=== PATIENT | male | born 1935 | race Caucasian/White ===

== ENCOUNTER 2024-05-08 16:34 | Emergency (ER) | payer OTHER ==
[~2024-05-08] VITALS: Ht 167.6 cm; Wt 41.0 kg
[2024-05-08 16:41] VITALS: O2SAT 96
[2024-05-08] MEDS ORDERED: PIPERACILLIN/TAZO 3.375G/50ML 50 ML IV ONE (17:00)
[2024-05-08 20:08] LABS: BASOPHILS % 0.2 % (0.0-2.0); HEMATOCRIT. 45.3 % (42.0-52.0); HEMOGLOBIN. 15.1 g/dL (14.0-18.0); LYMPHOCYTES % 8.4 % (20.0-50.0); MEAN CORPUSCULAR HEMOGLOBIN 30.7 pg (28.0-32.0); MEAN CORPUSCULAR HGB CONC 33.3 g/dL (31.0-37.0); MEAN CORPUSCULAR VOLUME 92.2 fL (80.0-94.0); MEAN PLATELET VOLUME 7.7 fl (7.4-10.4); MONOCYTES % 6.9 % (2.0-8.0); NEUTROPHILS % 84.5 % (40.0-76.0); PLATELET 201 x1000/uL (130-400); RED BLOOD CELL COUNT 4.91 mill/uL (4.7-6.1); RED CELL DISTRIBUTION WIDTH 14.6 % (11.6-14.6); WHITE BLOOD COUNT 10.4 x1000/uL (4.5-11.0)
[2024-05-08 20:12] LABS: CHLORIDE 106 mEq/L (98-107); POTASSIUM 5.1 mEq/L (3.5-5.1); SODIUM 141 mEq/L (136-145)
[2024-05-08 20:13] LABS: CARBON DIOXIDE 31 mEq/L (21-32)
[2024-05-08 20:14] LABS: CALCIUM 8.9 mg/dL (8.7-10.4)
[2024-05-08 20:18] LABS: PROTHROMBIN TIME 11.4 sec (9.6-11.0)
[2024-05-08 20:19] LABS: CREATININE 0.7 mg/dL (0.6-1.3); GLUCOSE 84 mg/dL (70-105); UREA NITROGEN BLOOD 35 mg/dL (9-23)
[2024-05-08 20:20] LABS: TROPONIN I HIGH SENSITIVITY 13 ng/L (3.0-53)
[2024-05-08 20:21] LABS: CREATINE KINASE 873 IU/L (46-171)
[2024-05-08] MEDS: SODIUM CHLORIDE 0.9% 1000ML BAG (SEPSIS BOLUS) IV ONE (20:29)
[2024-05-08] MEDS: PIPERACILLIN/TAZO 3.375G/50ML 50 ML IV NR (21:34)
[2024-05-08] MEDS ORDERED: ZOLPIDEM TARTRATE 5MG TABLET PO PRN (22:30)
[2024-05-08] MEDS ORDERED: ACETAMINOPHEN 325MG TABLET PO PRN ×2 (22:30)
[2024-05-08] MEDS ORDERED: IPRATROPIUM/ALBUTEROL 0.5-3(2.5)MG/3ML NEB NEB PRN (22:30)
[2024-05-08] MEDS ORDERED: DOCUSATE SODIUM 100MG CAPSULE PO PRN (22:30)
[2024-05-08] MEDS ORDERED: CLONIDINE 0.1MG TABLET PO PRN (22:30)
[2024-05-08] MEDS ORDERED: MAGNESIUM/ALUMINUM HYDROXIDE/SIMETHICONE 30ML UDC PO PRN (22:30)
[2024-05-08] MEDS ORDERED: GUAIFENESIN 200MG/10ML SUGAR FREE UDC PO PRN (22:30)
[2024-05-08] MEDS ORDERED: NITROGLYCERIN 0.4MG TABLET SL SL PRN (22:30)
[2024-05-08] MEDS ORDERED: ONDANSETRON HCL 4MG/2ML INJ IV PRN (22:30)
[2024-05-08] MEDS ORDERED: KETOROLAC 15MG/ML VIAL IV PRN (22:51)
[2024-05-08] MEDS: DEXT 5%/LACTATED RINGERS 1,000 ML IV SCH (23:28)
[2024-05-09 00:04] VITALS: BP 159/75; PULSE 61; RESP 12; TEMP 97.9
[2024-05-09 00:49] LABS: IRON 68 ug/dL (65-175); TRIGLYCERIDE 56 mg/dL (0-150)
[2024-05-09 00:50] LABS: LDL CHOLESTEROL 150 mg/dL (5-100)
[2024-05-09 00:52] LABS: CHOLESTEROL 275 mg/dL (<200); HDL CHOLESTEROL 97 mg/dL (>55); TOTAL IRON BINDING CAPACITY 220 ug/dl (250-425)
[2024-05-09 00:54] LABS: FOLIC ACID (FOLATE) SERUM 16.43 ng/mL (>5.38); T4 FREE 0.79 ng/dL (0.89-1.76); THYROID STIMULATING HORMONE 3.24 uIU/mL (0.55-4.78)
[2024-05-09 00:55] LABS: VITAMIN B12 SERUM 652 pg/mL (211-911)
[2024-05-09] MEDS ORDERED: PIPERACILLIN/TAZO 3.375G/50ML 50 ML IV SCH (06:00)
[2024-05-09] MEDS ORDERED: ASCORBIC ACID 500 MG TABLET PO SCH (09:00)
[2024-05-09] MEDS ORDERED: PANTOPRAZOLE SODIUM 40 MG/VIAL IV SCH (09:00)
[2024-05-09] MEDS ORDERED: ZINC SULFATE 220 MG ( 50 ) CAPSULE PO SCH (09:00)
[2024-05-09] MEDS ORDERED: ENOXAPARIN 30MG/0.3ML SYR SUBCUT SCH (09:00)
[2024-05-09] MEDS ORDERED: ASPIRIN 81MG EC TABLET PO SCH (09:00)
== END 2024-05-09 00:31 | disposition short-term general hospital (02) ==
LOC: ER 16:34 → EDBEDREQTM 21:09 → EDBEDREQ 21:09 → ER 05-09 00:31
DX: S00.01XA Abrasion of scalp, initial encounter (principal); M62.82 Rhabdomyolysis; G93.40 Encephalopathy, unspecified; R62.7 Adult failure to thrive; E86.0 Dehydration; I10 Essential (primary) hypertension; F19.90 Other psychoactive substance use, unspecified, uncomplicated; Z20.822 Contact with and (suspected) exposure to COVID-19; X58.XXXA Exposure to other specified factors, initial encounter; Y93.89 Activity, other specified; Y92.89 Other specified places as the place of occurrence of the external cause; Y99.8 Other external cause status
CPT/HCPCS: 99291; 70450; 96365; 96361; 80061; 80048; 82550; 82607; 82746; 83036; 84439; 83540; 83550; 83605; 84443; 85025; 85610; 87040; 84484; 36415; 84145; 71045; 72125; 93005; J2543; J7030